=== PATIENT | female | born 2000 | race African-American/Black ===

== ENCOUNTER 2021-06-24 10:39 | Emergency (ER) | payer OTHER ==
[~2021-06-24] VITALS: Ht 167.6 cm; Wt 50.4 kg
[2021-06-24 10:40] VITALS: BP 102/58
[2021-06-24 11:11] LABS: BASOPHILS 0.6 % (0.0-2.0); HEMATOCRIT 37.4 % (37.0-47.0); HEMOGLOBIN 12.1 gm/dL (12.0-15.0); LYMPHOCYTES 19.1 % (24.0-44.0); MCH 27.9 pg (26.0-34.0); MCHC 32.3 g/dL (28.0-37.0); MCV 86.5 fL (80.0-100.0); MONOCYTES 3.7 % (1.0-8.0); PLATELET COUNT 346 thou/uL (150-400); POLYS 74.6 % (36.0-66.0); RBC 4.32 mil/uL (4.20-5.00); RDW 15.9 % (10.5-14.5); WBC 13.4 thou/uL (4.0-11.0)
[2021-06-24 11:22] LABS: CREATININE 0.8 mg/dL (0.6-1.0); POTASSIUM 3.6 mmol/L (3.5-5.1)
[2021-06-24 11:27] LABS: ALBUMIN 4.1 g/dL (3.4-5.0); DIRECT BILIRUBIN 0.1 mg/dL (<0.1-0.2); TOTAL BILIRUBIN 0.4 mg/dL (0.2-1.0); TOTAL PROTEIN 7.9 g/dL (6.4-8.2)
[2021-06-24] MEDS ORDERED: ZOFRAN ODT4 MG PO (15:21)
== END 2021-06-24 16:29 | disposition home or self-care (01) ==
LOC: ER 10:39
PROVIDERS: Student in an Organized Health Care Education/Training Program
DX: R10.33 Periumbilical pain (principal); Z20.822 Contact with and (suspected) exposure to COVID-19; R10.31 Right lower quadrant pain; R11.2 Nausea with vomiting, unspecified; J45.909 Unspecified asthma, uncomplicated